=== PATIENT | female | born 1990 | race Caucasian/White ===

== ENCOUNTER 2018-09-15 14:24 | Emergency (ER) | payer SELFPAY ==
[~2018-09-15] VITALS: Ht 149.9 cm; Wt 71.4 kg
[2018-09-15 15:34] LABS: BASOPHILS % (AUTO) 0.3 % (0.0-2.0); EOSINOPHILS % (AUTO) 0.3 % (1.0-6.0); HEMATOCRIT 38.9 % (36-46); HEMOGLOBIN 13.1 g/dL (12.0-16.0); LYMPHOCYTES # (AUTO) 2.2 K/uL (1.0-4.8); MEAN CORPUSCULAR HEMOGLOBIN 29.2 pg (26.0-34.0); MEAN CORPUSCULAR HGB CONC 33.6 G/dL (31.0-37.0); MEAN CORPUSCULAR VOLUME 87 fL (80-100); MONOCYTES # (AUTO) 0.7 K/uL (0.1-1.0); MONOCYTES % (AUTO) 4.5 % (2.0-9.0); NEUTROPHILS # (AUTO) 12.9 K/uL (1.8-7.7); NEUTROPHILS % (AUTO) 80.9 % (40.0-70.0); PLATELET COUNT (AUTO) 305 K/uL (150-450); RED BLOOD CELL COUNT(AUTO) 4.47 MIL/uL (4.00-5.20); RED CELL DISTRIBUTION WIDTH 14.4 % (11.5-14.5)
[2018-09-15 15:34] LABS: APPEARANCE,URINE CLEAR (CLEAR); BILIRUBIN,URINE NEGATIVE (NEGATIVE); GLUCOSE, URINE (UA) NEGATIVE (NEGATIVE); KETONES,URINE NEGATIVE (NEGATIVE); LEUKOCYTE ESTERASE ,URINE TRACE (NEGATIVE); NITRATE,URINE NEGATIVE (NEGATIVE); OCCULT BLOOD,URINE NEGATIVE (NEGATIVE); PH,URINE 6.5 (5.0-8.0); PROTEIN,URINE NEGATIVE (NEGATIVE); UROBILINOGEN,URINE 0.2 mg/dL (<=1.0)
[2018-09-15 15:44] LABS: ANION GAP 10 mmol/L (8-16); CALCIUM, TOTAL 8.9 mg/dL (8.8-10.5); CARBON DIOXIDE 27 mmol/L (22-29); CHLORIDE 102 mmol/L (98-107); CREATININE 0.62 mg/dL (0.60-1.30); GLOMERULAR FILTR. RATE CALC > 60 mL/min (>60); GLUCOSE,RANDOM 110 mg/dL (70-110); POTASSIUM 3.7 mmol/L (3.5-5.1); SODIUM SERUM 139 mmol/L (136-145); UREA NITROGEN, BLOOD 7 mg/dL (7-18)
[2018-09-15 15:56] LABS: BACTERIA,URINE Rare /HPF (None Seen); WBC,URINE 0-2 /HPF (0-5)
[2018-09-15 15:57] LABS: SQUAMOUS EPITHELIAL CELL,UR Few /LPF (None Seen)
[2018-09-15 16:06] LABS: ALANINE AMINOTRANSFERASE 16 U/L (12-78); ALBUMIN 3.5 g/dL (3.4-5.0); ALKALINE PHOSPHATASE 54 U/L (46-116); ASPARTATE AMINOTRANSFERASE 12 U/L (15-37); BILIRUBIN,TOTAL 0.2 mg/dL (0.1-1.0); HCG,QUANTITATIVE 100945 mIU/mL (0-6); LIPASE 179 U/L (73-393); TOTAL PROTEIN, SERUM 7.5 g/dL (6.4-8.2)
[2018-09-15 17:14] VITALS: BP 127/67
== END 2018-09-15 17:28 | disposition home or self-care (01) ==
LOC: EMS 14:25
DX: O20.0 Threatened abortion (principal); Z3A.01 Less than 8 weeks gestation of pregnancy
CPT/HCPCS: 76801; 76817; 86901

== ENCOUNTER 2018-09-22 12:10 | Emergency (ER) | payer SELFPAY ==
[~2018-09-22] VITALS: Ht 149.9 cm; Wt 71.8 kg
[2018-09-22] MEDS ORDERED: ACETAMINOPHEN 500 MG TABLET PO ONE (13:00)
[2018-09-22] MEDS ORDERED: PROPARACAINE HCL 0.5% 15 ML OPHTHALMIC SOLUTION OD ONE (13:00)
[2018-09-22] MEDS ORDERED: FLUORESCEIN SODIUM 1 MG STRIP ONE (13:06)
[2018-09-22] MEDS ORDERED: CIPROFLOXACIN HCL 0.3% 2.5 ML OPHTHALMIC SOLUTION OU ONE (14:00)
[2018-09-22] MEDS ORDERED: CEPHALEXIN MONOHYDRATE 500 MG CAPSULE PO ONE (14:00)
[2018-09-22 14:58] VITALS: BP 108/64
[2018-09-25] MEDS ORDERED: CIPROFLOXACIN OU (15:00)
== END 2018-09-22 15:01 | disposition home or self-care (01) ==
LOC: EMS 12:10
DX: O26.891 Other specified pregnancy related conditions, first trimester (principal); B99.8 Other infectious disease; H10.89 Other conjunctivitis; H11.31 Conjunctival hemorrhage, right eye; Z3A.08 8 weeks gestation of pregnancy

== ENCOUNTER → 2018-09-25 | Emergency (ER) | payer SELFPAY ==
[~2018-09-25] VITALS: Ht 149.9 cm; Wt 71.8 kg
[~2018-09-25] MED LIST: CIPROFLOXACIN OU; PROPARACAINE HCL 0.5% 15 ML OPHTHALMIC SOLUTION OU ONE
[2018-09-25 19:26] VITALS: BP 112/62
== END | disposition home or self-care (01) ==
LOC: EMS 14:48
DX: O26.891 Other specified pregnancy related conditions, first trimester (principal); H10.33 Unspecified acute conjunctivitis, bilateral; Z3A.12 12 weeks gestation of pregnancy